=== PATIENT | male | born 1940 | race Caucasian/White ===

== ENCOUNTER 2017-05-06 02:17 | Observation (INO) | payer MEDICARE, BC ==
--- NOTE | 2017-05-06 02:37 | ER Document Report ---
ED Respiratory Problem - General Chief Complaint: Respiratory Distress Stated Complaint: DIFFICULTY BREATHING Time Seen by Provider: 05/06/17 02:27 Notes: Patient is a 77-year-old male that comes emergency department for chief complaint of difficulty breathing, symptoms have been worsening throughout the day, he has had a nonproductive cough for several days. He denies knowledge of fever. He states he had a tightness in his chest when his breathing got worse but denies pain. He denies vomiting, abdominal pain, lower extremity swelling, recent travel, recent surgery. He has a history of AICD, CAD, pacemaker/ defibrillator placement, hypertension, DM II, and takes Coumadin. He is not exactly sure why he takes Coumadin. Grandson at bedside. TRAVEL OUTSIDE OF THE [place] IN LAST 30 DAYS: No - Related Data Allergies/Adverse Reactions: Penicillins Allergy (Verified 05/06/17 02:18) Past Medical History - General Information source: Patient - Social History Smoking Status: Never Smoker Frequency of alcohol use: None Drug Abuse: None Lives with: Family Family History: Reviewed & Not Pertinent Patient has suicidal ideation: No Patient has homicidal ideation: No - Past Medical History Cardiac Medical History: Reports: Hx Atrial Fibrillation, Hx Congestive Heart Failure, Hx Coronary Artery Disease, Hx Heart Attack, Hx Hypercholesterolemia, Hx Hypertension Pulmonary Medical History: Reports: Hx Asthma Denies: Hx Tuberculosis Renal/ Medical History: Denies: Hx Peritoneal Dialysis Past Surgical History: Reports: Hx Coronary Stent - x5, Hx Internal Defibrillator, Hx Pacemaker - Immunizations Hx Diphtheria, Pertussis, Tetanus Vaccination: No Review of Systems - Review of Systems Constitutional: No symptoms reported EENT: No symptoms reported Cardiovascular: See HPI Respiratory: See HPI Gastrointestinal: No symptoms reported Genitourinary: No symptoms reported Male Genitourinary: No symptoms reported Musculoskeletal: No symptoms reported Skin: No symptoms reported Hematologic/Lymphatic: No symptoms reported Neurological/Psychological: No symptoms reported Physical Exam - Vital signs Vitals: BP Pulse Ox 186/108 H 100 05/06/17 02:35 05/06/17 02:35 Interpretation: Normal - General General appearance: Alert, Anxious In distress: Mild - Patient appears to be very uncomfortable - HEENT Head: Normocephalic, Atraumatic Eyes: Normal Pupils: PERRL - Respiratory Respiratory status: Respiratory distress, Labored, Tachypnea Breath sounds: Decreased air movement, Rales - Cardiovascular Rhythm: Regular. No: Tachycardia Heart sounds: Normal auscultation, S1 appreciated, S2 appreciated Murmur: No - Abdominal Inspection: Normal Distension: No distension Bowel sounds: Normal Tenderness: Nontender. No: Tender, Guarding Organomegaly: No organomegaly - Back Back: Normal, Nontender - Extremities General upper extremity: Normal inspection, Nontender, Normal color, Normal ROM , Normal temperature General lower extremity: Normal inspection, Nontender, Edema - Minimal bilateral edema, no pitting, Normal color, Normal ROM, Normal temperature, Normal weight bearing. No: Olivia's sign - Neurological Neuro grossly intact: Yes Cognition: Normal Orientation: AAOx4 [place] Coma Scale Eye Opening: Spontaneous [place] Coma Scale Verbal: Oriented [place] Coma Scale Motor: Obeys Commands [place] Coma Scale Total: 15 Speech: Normal Motor strength normal: LUE, RUE, LLE, RLE Sensory: Normal - Psychological Associated symptoms: Normal affect, Normal mood - Skin Skin Temperature: Warm Skin Moisture: Dry Skin Color: Normal Course - Re-evaluation Re-evalutation: Patient initially with tachypnea and appears to be in mild respiratory distress , however he was lying flat on the bed, I raised up the bed, placed him on oxygen, he was given nitroglycerin paste, he began to significantly improved. He does have rails on examination of his lungs especially on the left side. He is not hypoxic. He has missed his Lasix for several days in a row. He states this was because of issues with the pharmacy. He is compliant with his medications otherwise. He does not have significant lower extremity edema and does not have pitting. No fever, no tachycardia. CBC, chemistry generally unremarkable, chest x-ray does not show overt failure or pneumonia. Cardiac enzymes negative. BNP is greater than 3000 but this is nonspecific and was not previously tested. Patient has an ejection fraction of 35% per previous echo. Patient given a dose of Lasix. On reexamination patient continues to be well- appearing, however he cannot walk without getting short of breath and cannot lie flat. However when he is sitting up and on oxygen he has no symptoms. Patient is slightly subtherapeutic with his INR. His lung examination and HPr are most consistent with difficulty secondary to congestive heart failure exacerbation. Will discuss for admission. Discussed with Dr. Burroughs. Discussed with Dr. Mckinney, patient will be admitted to telemetry full admission. Patient states agreement with this plan. - Vital Signs Vital signs: Temp Pulse Resp BP Pulse Ox 22 H 173/105 H 99 05/06/17 06:31 05/06/17 06:31 05/06/17 06:31 - Laboratory Result Diagrams: 05/06/17 02:35 05/06/17 02:35 Laboratory results interpreted by me: 05/06/17 05/06/17 05/06/17 02:35 02:35 02:35 RBC 4.07 L Hgb 13.0 L RDW 14.2 H PT 19.4 H Total Bilirubin 2.1 H Direct Bilirubin 0.6 H NT-Pro-B Natriuret Pep Urine Protein 05/06/17 05/06/17 02:35 03:30 RBC Hgb RDW PT Total Bilirubin Direct Bilirubin NT-Pro-B Natriuret Pep 3170 H Urine Protein 30 H Discharge - Discharge Clinical Impression: Shortness of breath CHF exacerbation Qualifiers: Congestive heart failure type: unspecified congestive heart failure type Qualified Code(s): I50.9 - Heart failure, unspecified Condition: Stable Disposition: ADMITTED INPATIENT Admitting Provider: Hospitalist Unit Admitted: Telemetry
[2017-05-06 02:49] LABS: VENOUS BLOOD BASE EXCESS -2.3 mmol/L; VENOUS BLOOD HCO3 22.3 mmol/L (20-32); VENOUS BLOOD PCO2 37.9 mmHg (35-63); VENOUS BLOOD PH 7.39 (7.30-7.42)
[2017-05-06 02:51] LABS: ABSOLUTE BASOPHILS # (AUTO) 0.1 10^3/uL (0.0-0.2); ABSOLUTE EOSINOPHILS # (AUTO) 0.1 10^3/uL (0.0-0.6); ABSOLUTE LYMPHOCYTES (AUTO) 1.3 10^3/uL (0.5-4.7); ABSOLUTE MONOCYTES (AUTO) 0.6 10^3/uL (0.1-1.4); ABSOLUTE NEUT (AUTO) 3.5 10^3/uL (1.7-8.2); EOSINOPHILS % (AUTO) 2.2 % (0-6); HEMATOCRIT 38.7 % (37.9-51.0); HGB HCT DIFFERENCE 0.3; LYMPHOCYTES % (AUTO) 23.9 % (13-45); MEAN CORPUSCULAR HEMOGLOBIN 31.9 pg (27.0-33.4); MEAN CORPUSCULAR HGB CONC 33.6 g/dL (32.0-36.0); MEAN CORPUSCULAR VOLUME 95 fl (80-97); MONOCYTES % (AUTO) 10.2 % (3-13); RED BLOOD COUNT 4.07 10^6/uL (4.35-5.55); RED CELL DISTRIBUTION WIDTH 14.2 % (11.5-14.0); SEGMENTED NEUTROPHILS % (AUTO) 62.7 % (42-78); WHITE BLOOD COUNT 5.6 10^3/uL (4.0-10.5)
[2017-05-06] MEDS ORDERED: FUROSEMIDE INJ/PF 40 MG/4 ML SDV IV ONE ×2 (02:52→10:00)
[2017-05-06] MEDS ORDERED: NITROGLYCERIN 2% OINTMENT 1 GM PACKET TP ONE (02:57)
[2017-05-06 03:03] LABS: ALANINE AMINOTRANSFERASE 30 U/L (21-72); ALBUMIN 4.4 g/dL (3.5-5.0); ALKALINE PHOSPHATASE 55 U/L (38-126); ANION GAP 13 (5-19); ASPARTATE AMINO TRANSFERASE 25 U/L (17-59); BILIRUBIN,DIRECT 0.6 mg/dL (0.0-0.4); BILIRUBIN,TOTAL 2.1 mg/dL (0.2-1.3); BLOOD UREA NITROGEN 18 mg/dL (7-20); CALCIUM 9.7 mg/dL (8.4-10.2); CARBON DIOXIDE 24 mmol/L (22-30); CHLORIDE 106 mmol/L (98-107); CREATINE KINASE 84 U/L (55-170); CREATININE RESULT 0.91 mg/dL (0.52-1.25); GLUCOSE 99 mg/dL (75-110); POTASSIUM 4.5 mmol/L (3.6-5.0); SODIUM 143.4 mmol/L (137-145); TOTAL PROTEIN 7.4 g/dL (6.3-8.2)
[2017-05-06 03:15] LABS: CREATINE KINASE MB 1.94 ng/mL (<4.55); TROPONIN I < 0.012 ng/mL
--- NOTE | 2017-05-06 03:15 | RADIOLOGY REPORT (SQ) ---
EXAM DESCRIPTION: CHEST SINGLE VIEW COMPLETED DATE/TIME: 05/06/2017 3:02 am REASON FOR STUDY: shortness of breath, dec sounds and rales on Left COMPARISON: 04/19/2014. EXAM PARAMETERS: NUMBER OF VIEWS: One view. TECHNIQUE: Single frontal radiographic view of the chest acquired. RADIATION DOSE: NA LIMITATIONS: None. FINDINGS: LUNGS AND PLEURA: Moderate interstitial markings. MEDIASTINUM AND HILAR STRUCTURES: No masses. Contour normal. HEART AND VASCULAR STRUCTURES: Moderate enlargement of the cardiac silhouette. Atherosclerosis. BONES: No acute findings. HARDWARE: Left cardiac stimulation device and leads. OTHER: No other significant finding. IMPRESSION: No acute cardiopulmonary findings. Moderate chronic interstitial lung disease and moder ate cardiac enlargement without significant interval change compared with prior exam from March 2014 . TECHNICAL DOCUMENTATION: JOB ID: [id number]
[2017-05-06 03:37] LABS: PROTHROMBIN TIME 19.4 SEC (11.4-15.4)
[2017-05-06 03:51] LABS: APPEARANCE,URINE CLEAR; BILIRUBIN,URINE NEGATIVE (NEGATIVE); GLUCOSE, URINE NEGATIVE (NEGATIVE); KETONES,URINE NEGATIVE (NEGATIVE); LEUKOCYTE ESTERASE,URINE NEGATIVE (NEGATIVE); NITRITE,URINE NEGATIVE (NEGATIVE); PROTEIN,URINE 30 mg/dL (NEGATIVE); URINE SPECIFIC GRAVITY 1.008; UROBILINOGEN,URINE NEGATIVE mg/dL (<2.0)
[2017-05-06] MEDS ORDERED: DEXTROSE 40% GEL 15 GM TUBE PO PRN ×2 (06:19)
[2017-05-06] MEDS ORDERED: MAGNESIUM HYDROXIDE SUSP 30 ML UDCUP PO PRN (06:19)
[2017-05-06] MEDS ORDERED: DEXTROSE 50%-WATER 25 GM/50 ML DISP.SYRIN IV PRN ×2 (06:19)
[2017-05-06] MEDS ORDERED: GLUCAGON,HUMAN RECOMB 1 MG INJ IM PRN (06:19)
[2017-05-06] MEDS ORDERED: ACETAMINOPHEN 325 MG TABLET PO PRN (06:29)
[2017-05-06] MEDS ORDERED: PROMETHAZINE HCL 25 MG TABLET PO PRN (06:30)
[2017-05-06 06:31] LABS: ADD ON TESTING BLD IN LAB ACKNOWLEDGE
--- NOTE | 2017-05-06 07:02 | EKG REPORT ---
SEVERITY:- ABNORMAL ECG - VENTRICULAR-PACED RHYTHM : Confirmed by: Jeff Linares 06-May-2017 07:01:49
--- NOTE | 2017-05-06 07:22 | PDOC H&P ---
History of Present Illness Admission Date/PCP: 05/06/17 04:[address] Hsu, [facility] Patient complains of: Difficulty breathing History of Present Illness: IGLESIA PETE is a 77 year old male with known underlying systolic congestive heart failure, status post pacemaker defibrillator implant, atrial fibrillation, on Coumadin for same, and status post coronary stent implant 5 presents to the emergency room for evaluation of a several day history of combination dry cough and slowly progressive difficulty breathing, in particular with much of any exertion. Shortness of breath was particularly noticeable over the 24 hours or so prior to presentation. Did experience brief tightness in his chest when his breathing was at its worst , but this resolved once his breathing improved. No nausea vomiting, fever chills, diarrhea or dysuria. He has received an inch of Nitropaste and 40 mg of IV Lasix since coming to the emergency room, and now is breathing much more comfortably. Has had excellent urine output. Turns out that when he turned in his prescription for Lasix to his pharmacy , there were no refills. By the time all that was straightened out, so to speak, he had missed 2 days of his Lasix. Has also been somewhat noncompliant with other medications recently, including his Coumadin. There may have been other recent medication changes. Patient himself is a rather rambling historian, who frequently deviates from the subject being discussed. both current and old records mention asthma and COPD, but patient denies both. Patient has been discussed with emergency room nurse practitioner who evaluated the patient. Hospitalized on our service the through 31 March of last year with final diagnoses including dizziness, and syncope, along with acute allergic rhinitis with serous middle ear effusion. History and physical and discharge summary have been reviewed. Dictation via voice recognition software. Laboratory results are listed in [employer] and are reviewed. X-ray summary results are listed below, with full report(s) reviewed. . EKG reviewed and compared to a prior tracing from March 31 of last year. Social history/personal habits: . Lives alone, but has close family follow-up. Retired. No tobacco use for 20 years. No alcohol or illicit drug use. Allergies/adverse reactions are listed in [employer] and are reviewed. Uncertain if he can tolerate cephalosporins. Home medications initially autopopulated into [employer] may not accurately reflect patient's true medications, dosages, and/or frequencies. electro mechanical technologist to reconcile medications. Unfortunately, patient not certain of all medications/dosages/frequencies. REVIEW OF SYSTEMS: Constitutional: No fever or chills. Eyes: No vision complaints. ENT: No swallowing problems or complaints. Partial hearing loss. Pulmonary: See history and present illness. Cardiovascular: See history and present illness. Gastrointestinal: No current complaints, including nausea or vomiting. Skin: No current complaints, including rashes. Hematologic: Easy bruising. Neurologic: No current complaints, including numbness or tingling. Musculoskeletal: Joint pain from arthritis. Psychiatric: Denies anxiety or depression. Endocrine: No current complaints, including polyuria. Genitourinary: No current complaints, including dysuria. PHYSICAL EXAMINATION: 5 feet 11 inches tall. 100.7 kg. BMI 31 kg/m. Blood pressure 180/97. Pulse 73 and regular. 98% saturation on 2 L oxygen per nasal cannula. Respirations are 13 and unlabored. Temperature not recorded on chart; skin feels normothermic. Somewhat obese, also somewhat slightly disheveled, chronically ill-appearing male who appears a bit older than his stated age. Pleasant awake alert and cooperative. Mildly anxious, without agitation. Skin is warm and dry. No grossly obvious evidence of rash in areas of skin examined. No subcutaneous nodules palpated. ENT: Hearing grossly normal to normal conversation. Tongue midline on protrusion pink and slightly tacky. Eyes: No scleral icterus. Pupils equal and reactive to light at 4 mm. [place] conjunctivae. Neck is supple and nontender to gentle active range of motion and palpation. Midline trachea. No palpable thyroid nodule mass enlargement or tenderness. Lymphatic: No palpable cervical or clavicular nodes. Neck and lymphatic exams limited by patient body habitus. Psychiatric: Fair to reasonable insight into acute and chronic medical issues. Oriented to time location and why here. See history and present illness. Lungs: Auscultation reveals clear and equal breath sounds bilaterally. No use of accessory respiratory muscles. Cardiovascular: Heart regular rate and rhythm, without gallop murmur or rub. No carotid or abdominal aortic bruits. Mild bilateral symmetric very slightly pitting lower calf, ankle and pedal edema. Palpable dorsalis pedis pulses. Abdomen:soft slightly distended nontender with positive bowel sounds. Unable to adequately evaluate abdomen for masses or organomegaly due to distention. Extremities: Feet are warm and dry. No calf tenderness to compression. Gentle manipulation of lower extremities fails to reveal any obvious evidence of injury or instability to knees hips or ankles. Neurologic: Moves upper extremities grossly normally. Patellar reflexes absent. Absent Babinski. Light touch is intact at feet. Dorsiflexion and plantarflexion of feet 5 / 5 and symmetric. Past Medical History Cardiac Medical History: Reports: Atrial Fibrillation, Congestive Heart Failure - Systolic, Coronary Artery Disease, Myocardial Infarction, Hyperlipidema, Hypertension Denies: DVT, Pulmonary Embolism Pulmonary Medical History: Reports: Sleep Apnea - Noncompliant with CPAP mask Denies: Asthma, Chronic Obstructive Pulmonary Disease (COPD), Tuberculosis EENT Medical History: Reports: Ears - Partial hearing loss Denies: Eyes, Throat Neurological Medical History: Denies: Hemorrhagic CVA, Ischemic CVA, Seizures Endocrine Medical History: Reports: Diabetes Mellitus Type 2 Denies: Diabetes Mellitus Type 1, Hyperthyroidism, Hypothyroidism Renal/ Medical History: Reports: Other - Rare urinary tract infection GI Medical History: Reports: Peptic Ulcer Disease, Other - Distant history of peptic ulcer disease Denies: Cirrhosis, Gastroesophageal Reflux Disease, Hepatitis Musculoskeltal Medical History: Reports: Arthritis - Rheumatoid Skin Medical History: Reports: None Psychiatric Medical History: Denies: Alcohol Dependency, Depression, General Anxiety Disorder, Substance Abuse, Tobacco Dependency Hematology: Reports: Other - Easy bruising Infectious Medical History: Denies: Hepatitis B, Hepatitis C Past Surgical History Past Surgical History: Reports: Coronary Stent - x5, Internal Defibrillator Social History Information Source: Patient, Emergency Med Personnel, [facility] Records Lives with: Alone - Close family follow-up Smoking Status: Former Smoker Frequency of Alcohol Use: None Hx Recreational Drug Use: No Drugs: None Hx Prescription Drug Abuse: No - Advance Directive Resuscitation Status: Full Code Surrogate healthcare decision maker:: Daughter Family History Family History: Reviewed & Not Pertinent Parental Family History Reviewed: Yes - Mother of MD; father at 95. Children Family History Reviewed: Yes - Healthy Sibling(s) Family History Reviewed.: Yes - 2 surviving sisters, healthy Medication/Allergy Home Medications: Aspirin [Aspirin EC] 81 mg PO DAILY 05/06/17 Glimepiride [Amaryl 4 mg Tablet] 4 mg PO DAILY 05/06/17 Hydrocodone/Acetaminophen [[place] 7.5-325 mg Tablet] 1 tab PO Q8 05/06/17 Isosorbide Mononitrate [Isosorbide Mononitrate ER] 30 mg PO DAILY 05/06/17 Losartan Potassium [Cozaar 50 mg Tablet] 50 mg PO DAILY 05/06/17 Magnesium Oxide [Mag-Ox 400 mg Tablet] 400 mg PO DAILY 05/06/17 Metformin HCl [Glucophage 500 mg Tablet] 1,000 mg PO DAILY 05/06/17 Metformin HCl [Glucophage 500 mg Tablet] 500 mg PO QHS 05/06/17 Metoprolol Succinate [Toprol Xl 50 mg Tab.sr] 50 mg PO Q12 05/06/17 Montelukast Sodium [Singulair 10 mg Tablet] 10 mg PO QHS 05/06/17 Pantoprazole Sodium [Protonix] 40 mg PO DAILY 05/06/17 Potassium Chloride [Klor-Con 10 Meq Tablet.sa] 10 meq PO DAILY 05/06/17 Terazosin HCl 1 mg PO QHS 05/06/17 Warfarin Sodium [Coumadin 4 mg Tablet] 4 mg PO DAILY 05/06/17 Furosemide [Lasix 40 mg Tablet] 40 mg PO DAILY #30 tablet 05/07/17 Allergies/Adverse Reactions: Penicillins Allergy (Verified 05/06/17 02:18) Physical Exam Vital Signs: Temp Pulse Resp BP Pulse Ox 13 180/97 H 99 05/06/17 05:31 05/06/17 05:31 05/06/17 05:31 Results Impressions: Chest X-Ray 05/06/17 02:34 IMPRESSION: No acute cardiopulmonary findings. Moderate chronic interstitial lung disease and moderate cardiac enlargement without significant interval change compared with prior exam from March 2014. Assessment & Plan - Diagnosis (1) Elevated LFTs Is this a current diagnosis for this admission?: Yes Plan: Likely secondary to underlying congestive heart failure. Follow-up chemistry. (2) HLD (hyperlipidemia) Qualifiers: Hyperlipidemia type: unspecified Qualified Code(s): E78.5 - Hyperlipidemia , unspecified Is this a current diagnosis for this admission?: Yes Plan: Resume home medications as appropriate once these have been determined and reviewed. (3) Acute on chronic systolic (congestive) heart failure Is this a current diagnosis for this admission?: Yes Plan: Suspect due in large part to his having missed 2 or 3 doses of Lasix. Excellent urine output to IV Lasix. Breathing much more comfortably now. I have strongly encouraged patient not to get out of bed without notifying staff , to avoid a fall with injury. Knee high SCDs for DVT prophylaxis; with patient on Coumadin, no need for Lovenox or heparin. Impression and plans were discussed with patient, who concurs. Time spent in evaluation and management of patient: 72 minutes. (4) Noncompliance Is this a current diagnosis for this admission?: Yes (5) Diabetes mellitus type 2 in obese Is this a current diagnosis for this admission?: Yes Plan: Diabetic cardiac diet. Accu-Cheks with appropriate sliding scale coverage. Resume home medications as appropriate once these have been determined and reviewed. (6) Anticoagulant long-term use Is this a current diagnosis for this admission?: Yes Plan: Resume home medications as appropriate once these have been determined and reviewed. (7) HTN (hypertension) Qualifiers: Hypertension type: essential hypertension Qualified Code(s): I10 - Essential (primary) hypertension Is this a current diagnosis for this admission?: Yes Plan: Resume home medications as appropriate once these have been determined and reviewed. (8) Afib Qualifiers: Atrial fibrillation type: unspecified Qualified Code(s): I48.91 - Unspecified atrial fibrillation Is this a current diagnosis for this admission?: Yes Plan: Resume home medications as appropriate once these have been determined and reviewed. (9) EKATERINA (obstructive sleep apnea) Is this a current diagnosis for this admission?: Yes Plan: CPAP nightly - Time Time Spent: Greater than 70 Minutes Anticipated discharge: Home Within: within 48 hours
[2017-05-06] MEDS ORDERED: LOSARTAN POTASSIUM 50 MG TABLET PO ONE (07:30)
[2017-05-06] MEDS ORDERED: METOPROLOL TARTRATE 50 MG TABLET PO ONE (09:00)
[2017-05-06] MEDS: DOCUSATE SODIUM 100 MG CAPSULE PO SCH (10:14)
[2017-05-06 10:33] LABS: APPEARANCE,URINE CLEAR; BILIRUBIN,URINE NEGATIVE (NEGATIVE); GLUCOSE, URINE NEGATIVE (NEGATIVE); KETONES,URINE NEGATIVE (NEGATIVE); LEUKOCYTE ESTERASE,URINE NEGATIVE (NEGATIVE); NITRITE,URINE NEGATIVE (NEGATIVE); PROTEIN,URINE NEGATIVE (NEGATIVE); URINE SPECIFIC GRAVITY 1.008; UROBILINOGEN,URINE NEGATIVE mg/dL (<2.0)
[2017-05-06] MEDS ORDERED: GLIMEPIRIDE 4 MG TABLET PO ONE (12:00)
[2017-05-06] MEDS: HYDROCODONE/ACETAMINOPHEN 7.5-325 MG TABLET PO SCH ×2 (13:36→21:43)
[2017-05-06] MEDS: METOPROLOL TARTRATE 50 MG TABLET PO SCH (21:43)
[2017-05-06] MEDS ORDERED: WARFARIN SODIUM 4 MG TABLET PO SCH (22:00)
[2017-05-07] MEDS ORDERED: ENALAPRILAT DIHYDRATE INJ/PF 1.25 MG/1 ML SDV IV ONE (00:50)
[2017-05-07] MEDS: HYDROCODONE/ACETAMINOPHEN 7.5-325 MG TABLET PO SCH (05:28)
[2017-05-07 07:42] LABS: PROTHROMBIN TIME 17.6 SEC (11.4-15.4)
[2017-05-07 07:46] LABS: ALANINE AMINOTRANSFERASE 26 U/L (21-72); ALBUMIN 3.9 g/dL (3.5-5.0); ALKALINE PHOSPHATASE 50 U/L (38-126); ANION GAP 10 (5-19); ASPARTATE AMINO TRANSFERASE 31 U/L (17-59); BILIRUBIN,DIRECT 0.6 mg/dL (0.0-0.4); BILIRUBIN,TOTAL 2.1 mg/dL (0.2-1.3); BLOOD UREA NITROGEN 20 mg/dL (7-20); CALCIUM 9.3 mg/dL (8.4-10.2); CARBON DIOXIDE 28 mmol/L (22-30); CHLORIDE 103 mmol/L (98-107); CREATININE RESULT 0.89 mg/dL (0.52-1.25); GLUCOSE 100 mg/dL (75-110); POTASSIUM 4.2 mmol/L (3.6-5.0); SODIUM 141.2 mmol/L (137-145); TOTAL PROTEIN 6.6 g/dL (6.3-8.2)
--- NOTE | 2017-05-07 08:42 | Physician Advisory Note ---
Physician Advisor ProgressNote .: Pursuant to the plan for Balwinder Diaz, I have reviewed the medical record for this patient. Physician Advisor Statement: Nice documentation of ac on chr syst CHF w/EF 35%. Please consider documentin. Principal Dx 1st (dx requiring pt to come into hospital should be dx #1 in all notes) 2. Status change possible - below Status: Appropriately brought in as Outpt Obs to start, for CHF exac that might respond quickly to tx. Indeed, pt has diuresed nicely overnight, w/net UOP at least 2468ml. If, however, pt is not yet back to baseline breathing status after 1MN of care, still needs ongoing hospital care & close monitoring x a 2nd MN, then please document this & consider changing to Inpatient status. Thanks! CK
[2017-05-07] MEDS ORDERED: LOSARTAN POTASSIUM 50 MG TABLET PO SCH (10:00)
[2017-05-07] MEDS ORDERED: GLIMEPIRIDE 4 MG TABLET PO SCH (10:00)
[2017-05-07] MEDS ORDERED: FUROSEMIDE 40 MG TABLET PO SCH (10:00)
[2017-05-07] MEDS: DOCUSATE SODIUM 100 MG CAPSULE PO SCH (10:27)
[2017-05-07] MEDS: METOPROLOL TARTRATE 50 MG TABLET PO SCH (10:27)
[2017-05-07 12:07] VITALS: BP 154/88
--- NOTE | 2017-05-07 16:11 | PDOC DISCHARGE SUMMARY ---
General - Admit/Disc Date/PCP Admission Date/Primary Care Provider: 05/06/17 04:27 Discharge Date: 05/07/17 - Discharge Diagnosis (1) Acute on chronic systolic (congestive) heart failure Is this a current diagnosis for this admission?: Yes Summary: Patient presented with acute congestive heart failure because he had forgotten to take his Lasix for the last several days. (2) Afib Is this a current diagnosis for this admission?: Yes (3) Diabetes mellitus type 2 in obese Is this a current diagnosis for this admission?: Yes (4) HLD (hyperlipidemia) Is this a current diagnosis for this admission?: Yes (5) HTN (hypertension) Is this a current diagnosis for this admission?: Yes (6) EKATERINA (obstructive sleep apnea) Is this a current diagnosis for this admission?: Yes - Additional Information Resuscitation Status: Full Code Discharge Diet: Cardiac, Diabetic Discharge Activity: Activity As Tolerated, Balance Activity w/Rest, Weigh Daily Home Medications: Aspirin [Aspirin EC] 81 mg PO DAILY 05/06/17 Glimepiride [Amaryl 4 mg Tablet] 4 mg PO DAILY 05/06/17 Hydrocodone/Acetaminophen [Davis 7.5-325 mg Tablet] 1 tab PO Q8 05/06/17 Isosorbide Mononitrate [Isosorbide Mononitrate ER] 30 mg PO DAILY 05/06/17 Losartan Potassium [Cozaar 50 mg Tablet] 50 mg PO DAILY 05/06/17 Magnesium Oxide [Mag-Ox 400 mg Tablet] 400 mg PO DAILY 05/06/17 Metformin HCl [Glucophage 500 mg Tablet] 1,000 mg PO DAILY 05/06/17 Metformin HCl [Glucophage 500 mg Tablet] 500 mg PO QHS 05/06/17 Metoprolol Succinate [Toprol Xl 50 mg Tab.sr] 50 mg PO Q12 05/06/17 Montelukast Sodium [Singulair 10 mg Tablet] 10 mg PO QHS 05/06/17 Pantoprazole Sodium [Protonix] 40 mg PO DAILY 05/06/17 Potassium Chloride [Klor-Con 10 Meq Tablet.sa] 10 meq PO DAILY 05/06/17 Terazosin HCl 1 mg PO QHS 05/06/17 Warfarin Sodium [Coumadin 4 mg Tablet] 4 mg PO DAILY 05/06/17 Furosemide [Lasix 40 mg Tablet] 40 mg PO DAILY #30 tablet 05/07/17 History of Present Illness History of Present Illness: IGLESIA PETE is a 77 year old male with a known history of coronary artery disease as well as systolic congestive heart failure who presented with shortness of breath, dry cough and progressive dyspnea. The patient had not taken his Lasix for the last 2 days as his prescription for Lasix ran out. The patient denied having any chest pain. He was found to be in congestive heart failure and was admitted for diuresis. Hospital Course Hospital Course: 77-year-old gentleman with a history of systolic congestive heart failure who presented with acute on chronic systolic congestive heart failure. The patient had his prescription of Lasix run out and he had not taken it for 2 days. Patient was given IV Lasix and had quick improvement in his respiratory status. On the day of discharge he returned to his baseline respiratory status. He was given a prescription of Lasix to take. Patient also had a history of coronary artery disease as well as diabetes both of which were stable. Patient no evidence for any type of acute cardiac event as the cause for his symptoms. Physical Exam Vital Signs: Temp Pulse Resp BP Pulse Ox 98.1 F 70 18 154/88 H 97 05/07/17 11:49 05/07/17 11:49 05/07/17 11:49 05/07/17 11:49 05/07/17 11:49 Intake & Output 05/06/17 05/07/17 05/08/17 06:59 06:59 06:59 Intake Total 1782 Output Total 4250 Balance -2468 Weight 97.267 kg General appearance: PRESENT: no acute distress Eye exam: PRESENT: conjunctiva pink. ABSENT: scleral icterus Mouth exam: PRESENT: moist, tongue midline Neck exam: ABSENT: JVD Respiratory exam: PRESENT: clear to auscultation naya. ABSENT: rales, rhonchi, wheezes Cardiovascular exam: PRESENT: RRR. ABSENT: diastolic murmur, rubs, systolic murmur GI/Abdominal exam: PRESENT: normal bowel sounds, soft. ABSENT: distended, guarding, mass, organolmegaly, rebound, tenderness Extremities exam: ABSENT: calf tenderness, clubbing, pedal edema Neurological exam: PRESENT: alert, awake, oriented to person, oriented to place , oriented to time, oriented to situation, CN II-XII grossly intact. ABSENT: motor sensory deficit Psychiatric exam: PRESENT: appropriate affect Skin exam: PRESENT: dry, intact, warm. ABSENT: cyanosis, rash Results Laboratory Results: 05/07/17 06:57 05/07/17 06:57 Sodium 141.2 Potassium 4.2 Chloride 103 Carbon Dioxide 28 Anion Gap 10 BUN 20 Creatinine 0.89 Est GFR ( Amer) > 60 Est GFR (Non-Af Amer) > 60 Glucose 100 Calcium 9.3 Total Bilirubin 2.1 H AST 31 ALT 26 Alkaline Phosphatase 50 Total Protein 6.6 Albumin 3.9 05/06/17 05/06/17 09:26 13:08 Troponin I < 0.012 < 0.012 Impressions: Chest X-Ray 05/06/17 02:34 IMPRESSION: No acute cardiopulmonary findings. Moderate chronic interstitial lung disease and moderate cardiac enlargement without significant interval change compared with prior exam from March 2014. Qualifiers PATEINT BEING DISCHARGED WITH ANY OF THE FOLLOWING DIAGNOSIS?: Heart Failure HF Pt being discharged on ACEI for LVEF less than 40%?: No Reason(s) for not prescribing ACEI:: Not indicated HF Pt being discharged on ARBS for LVEF less than 40%?: Yes HF Pt with Afib discharged with Warfarin?: Yes HF Pt discharged on evidence-based Beta Arias:: Yes Plan Discharge Plan: Patient will follow up with his primary care doctor in 1-2 weeks. He is discharged to home. Time Spent: Less than 30 Minutes
== END 2017-05-07 13:05 | disposition home or self-care (01) ==
LOC: ER 02:17 → EH 04:27 → INTOOBSV 04:27 → 4S 08:40
PROVIDERS: ADMIT Family Medicine; ATTEND Family Medicine
DX: I11.0 Hypertensive heart disease with heart failure (principal); I50.23 Acute on chronic systolic (congestive) heart failure; I48.2 Chronic atrial fibrillation; E78.5 Hyperlipidemia, unspecified; G47.33 Obstructive sleep apnea (adult) (pediatric); E11.9 Type 2 diabetes mellitus without complications; I25.10 Atherosclerotic heart disease of native coronary artery without angina pectoris; Z79.01 Long term (current) use of anticoagulants; Z95.810 Presence of automatic (implantable) cardiac defibrillator; Z91.19 Patient's noncompliance with other medical treatment and regimen
CPT/HCPCS: 93005; 99285; 36415 ×2; 87040; 82553; 82962 ×2; 82550; 83735; 85025; 85610 ×2; 80053 ×2; 81001; 84484; 82803; 83605; 83880; 71010; 93010; G0378 ×3; A9270 ×14; J1940; J3490 ×3

== ENCOUNTER → 2017-06-17 | Outpatient (CLI) | payer MEDICARE, BC ==
--- NOTE | 2017-06-17 12:41 | RADIOLOGY REPORT (SQ) ---
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 Additio nal selected color Doppler and spectral images recorded. LIMITATIONS: None. FINDINGS: PANCREAS: No masses. Visualized pancreatic duct normal caliber. LIVER: 17.7 cm. Normal echotexture. LIVER VASCULATURE: Normal directional flow of the main portal vein and hepatic veins. GALLBLADDER: There are some small stones. There is some echogenic sludge. There is no wall thickeni ng. There is no pericholecystic fluid. ULTRASOUND-DETECTED JOHANSEN'S SIGN: Negative. INTRAHEPATIC DUCTS AND COMMON DUCT: CBD and intrahepatic ducts normal caliber. No filling defects. INFERIOR VENA CAVA: Normal flow. AORTA: No aneurysm. RIGHT KIDNEY: Normal size, 11.3 cm. Normal echogenicity. No solid masses. There is a 3 cm cyst on the upper pole. No hydronephrosis. No calcifications. PERITONEAL AND RIGHT PLEURAL SPACE: No ascites or effusions. OTHER: No other significant findings. IMPRESSION: Cholelithiasis with no evidence of cholecystitis. TECHNICAL DOCUMENTATION: JOB ID: [id number]- All Rights Reserved
== END ==
LOC: RAD 08:36
PROVIDERS: ATTEND Registered Nurse
DX: R10.9 Unspecified abdominal pain (principal); E80.7 Disorder of bilirubin metabolism, unspecified; K80.20 Calculus of gallbladder without cholecystitis without obstruction
CPT/HCPCS: 76705

== ENCOUNTER → 2019-08-21 | Outpatient (CLI) | payer MEDICARE, BC ==
--- NOTE | 2019-08-21 15:42 | RADIOLOGY REPORT (SQ) ---
EXAM DESCRIPTION: U/S RETROPERITON (RENAL/AORTA) COMPLETED DATE/TIME: 08/21/2019 3:24 pm REASON FOR STUDY: R94.4 ABNORMAL RESULTS OF KIDNEY FUNCTION STUDIES R94.4 ABNORMAL RESULTS OF KIDNE Y FUNCTION STUDIES COMPARISON: None. TECHNIQUE: Dynamic and static grayscale images acquired of the kidneys and bladder and recorded on P ACS. Additional selected color Doppler and spectral images recorded. LIMITATIONS: None. FINDINGS: RIGHT KIDNEY: Normal size, 11.6 cm. Slightly hypoechoic. No solid or suspicious masses. N o hydronephrosis. No calcifications. LEFT KIDNEY: Normal size, 11.6 cm. Slightly hypoechoic. No solid or suspicious masses. No hydroneph rosis. No calcifications. BLADDER: Bilateral ureteral jets are seen. No masses. OTHER FINDINGS: No other significant finding. IMPRESSION: The kidneys are slightly hypoechoic but the study is otherwise normal. TECHNICAL DOCUMENTATION: JOB ID: [id number] [employer]- All Rights Reserved Reading location - IP/workstation name: [email or web address]
== END ==
LOC: RAD 14:22
PROVIDERS: ATTEND Registered Nurse
DX: R94.4 Abnormal results of kidney function studies (principal)
CPT/HCPCS: 76770

== ENCOUNTER 2020-01-16 11:46 | Emergency (ER) | payer MEDICARE, BC ==
--- NOTE | 2020-01-16 12:09 | ER Document Report ---
ED General - General Chief Complaint: Dizziness Stated Complaint: DIZZINESS Time Seen by Provider: 01/16/20 11:51 Primary Care Provider: CYNTHIA KOROMA HOT STAMP OPERATOR [Primary Care Provider] - Follow up as needed Information source: Patient Notes: Patient is a 79-year-old male presenting to the emergency department chief complaint of dizziness/vertigo. Patient states he has a prior history of same. Patient denies travel history trauma history sick contacts no change in medications. Patient denies nausea vomiting diarrhea fevers chills cough or cold other than today once the dizziness started patient states that he became nauseous and did have several episodes of vomiting. Patient states no one else at home is ill. TRAVEL OUTSIDE OF THE [place] IN LAST 30 DAYS: No - HPI Onset: This morning Onset/Duration: Intermittent Quality of pain: No pain Severity: Moderate Associated symptoms: Nausea, Vomiting Exacerbated by: Movement Relieved by: Denies Similar symptoms previously: Yes Recently seen / treated by doctor: Yes - pain mgt injection - Related Data Allergies/Adverse Reactions: Penicillins Allergy (Verified 05/06/17 02:18) Past Medical History - General Information source: Patient, [facility] Records - Social History Smoking Status: Former Smoker Chew tobacco use (# tins/day): No Frequency of alcohol use: None Drug Abuse: None Lives with: Spouse/Significant other Family History: Reviewed & Not Pertinent Patient has suicidal ideation: No Patient has homicidal ideation: No - Past Medical History Cardiac Medical History: Reports: Hx Atrial Fibrillation, Hx Congestive Heart Failure - Systolic, Hx Coronary Artery Disease, Hx Heart Attack, Hx Hypercholesterolemia, Hx Hypertension Denies: Hx DVT, Hx Pulmonary Embolism Pulmonary Medical History: Reports: Hx Sleep Apnea - Noncompliant with CPAP mask Denies: Hx Asthma, Hx COPD, Hx Tuberculosis Neurological Medical History: Denies: Hx Seizures Endocrine Medical History: Reports: Hx Diabetes Mellitus Type 2. Denies: Hx Diabetes Mellitus Type 1, Hx Hyperthyroidism, Hx Hypothyroidism Renal/ Medical History: Denies: Hx Peritoneal Dialysis GI Medical History: Denies: Hx Cirrhosis, Hx Gastroesophageal Reflux Disease, Hx Hepatitis Musculoskeletal Medical History: Reports Hx Arthritis - Rheumatoid Psychiatric Medical History: Denies: Hx Depression Infectious Medical History: Denies: Hx Hepatitis Past Surgical History: Reports: Hx Cardiac Surgery - stent x 5, Hx Coronary S tent - x5, Hx Internal Defibrillator, Hx Pacemaker - Immunizations Hx Diphtheria, Pertussis, Tetanus Vaccination: No Review of Systems - Review of Systems Notes: REVIEW OF SYSTEMS: CONSTITUTIONAL : Denies fever, chills, or sweats. Denies recent illness. EENT: Denies eye, ear, throat, or mouth pain or symptoms. Denies nasal or sinus congestion. CARDIOVASCULAR: Denies chest pain. RESPIRATORY: Denies cough, cold, or chest congestion. Denies shortness of breath, difficulty breathing, or wheezing. GASTROINTESTINAL: Per HPI GENITOURINARY: Denies difficulty urinating, painful urination, burning, frequency, or blood in urine. MUSCULOSKELETAL: Denies neck or back pain or joint pain or swelling. SKIN: Denies rash or skin lesions. HEMATOLOGIC : Denies easy bruising or bleeding. NEUROLOGICAL: Per HPI PSYCHIATRIC: Denies suicidal or homicidal ideations 10 Systems are negative unless otherwise specified above Physical Exam - Vital signs Vitals: Temp 97 F L 01/16/20 11:52 - Notes Notes: PHYSICAL EXAMINATION: GENERAL: Well-appearing, well-nourished and in no acute distress. HEAD: Atraumatic, normocephalic. EYES: Pupils equal round and reactive to light, extraocular movements intact, sclera anicteric, conjunctiva are normal. ENT: nares patent, oropharynx clear without exudates. Moist mucous membranes. NECK: Normal range of motion, supple without lymphadenopathy, no appreciable JVD LUNGS: Lungs clear to auscultation bilaterally and equal. No wheezes rales or rhonchi. HEART: Regular rate and rhythm without murmurs ABDOMEN: Soft, nontender, normal bowel sounds. No guarding, no rebound. No masses appreciated. EXTREMITIES: Active full range of motion, no pitting or edema. No cyanosis. 2+ pulses x4 NEUROLOGICAL: At time of presentation patient is alert and oriented x3 Demetrio Coma Scale of 15 patient answers all questions appropriately follows commands appropriately and at this time the dizziness/vertigo seems to have abated. Patient has no focal neurologic deficits. SKIN: Warm, Dry, and intact. Normal turgor, no rashes or lesions noted. Course - Re-evaluation Re-evalutation: 01/16/20 13:39 Patient has remained stable while in emergency department has not had any episodes of dizziness while present. I did discuss laboratory EKG and radiologic results with the patient patient has been sleeping most of the time he states that he does do this on a regular basis because he is bored. Patient also is supposed to be wearing a CPAP at night but patient adamantly refuses. Patient does not have supplemental oxygen at home. Patient is agreeable with discharge home will receive first dose of antibiotic in the emergency department for treatment of his urinary tract infection and he was recommended to follow-up in the next several days with his family physician. - Vital Signs Vital signs: Temp Pulse Resp BP Pulse Ox 97 F L 73 131/81 H 01/16/20 11:52 01/16/20 13:32 01/16/20 13:32 - Laboratory Result Diagrams: 01/16/20 12:05 01/16/20 12:05 Laboratory results interpreted by me: 01/16/20 01/16/20 01/16/20 12:05 12:05 12:05 RBC 4.01 L Hgb 13.0 L Hct 36.3 L Plt Count 141 L PT 31.1 H BUN 29 H Creatinine 2.18 H Est GFR ( Amer) 36 L Est GFR (MDRD) Non-Af 29 L Glucose 200 H Total Bilirubin 2.0 H Ur Leukocyte Esterase 01/16/20 12:26 RBC Hgb Hct Plt Count PT BUN Creatinine Est GFR ( Amer) Est GFR (MDRD) Non-Af Glucose Total Bilirubin Ur Leukocyte Esterase TRACE H - Diagnostic Test Radiology reviewed: Reports reviewed - EKG Interpretation by Me Rate: Normal Rhythm: NSR Additional EKG results interpreted by me: 01/16/20 12:24 EKG and is interpreted by me shows a ventricularly paced rhythm at 76 bpm there is intermittent ectopy and for the most part similar morphology compared to prior EKG of 05/06/2017. Discharge - Discharge Clinical Impression: Dizziness, Noncompliance, EKATERINA (obstructive sleep apnea), Diabetes mellitus type 2 in obese, Renal insufficiency HTN (hypertension) Qualifiers: Hypertension type: essential hypertension Qualified Code(s): I10 - Essential (primary) hypertension Urinary tract infection Qualifiers: Urinary tract infection type: site unspecified Hematuria presence: without h ematuria Qualified Code(s): N39.0 - Urinary tract infection, site not specified Condition: Stable Disposition: HOME, SELF-CARE Instructions: Nitrofurantoin ([facility]), Urinary Tract Infection ([facility]) Additional Instructions: Recommend follow-up with your primary care provider in the next week for reevaluation of your UTI and elevated kidney functions. Prescriptions: Nitrofurantoin Monohyd/M-Cryst [Macrobid 100 mg Capsule] 100 mg PO BID #20 cap Referrals: CYNTHIA KOROMA, HOT STAMP OPERATOR [Primary Care Provider] - Follow up as needed
[2020-01-16 12:22] LABS: ABSOLUTE EOSINOPHILS # (AUTO) 0.2 10^3/uL (0.0-0.6); ABSOLUTE LYMPHOCYTES (AUTO) 0.8 10^3/uL (0.5-4.7); ABSOLUTE MONOCYTES (AUTO) 0.5 10^3/uL (0.1-1.4); ABSOLUTE NEUT (AUTO) 3.2 10^3/uL (1.7-8.2); EOSINOPHILS % (AUTO) 3.3 % (0-6); HEMATOCRIT 36.3 % (37.9-51.0); LYMPHOCYTES % (AUTO) 16.2 % (13-45); MEAN CORPUSCULAR HEMOGLOBIN 32.5 pg (27.0-33.4); MEAN CORPUSCULAR HGB CONC 35.9 g/dL (32.0-36.0); MEAN CORPUSCULAR VOLUME 91 fl (80-97); MONOCYTES % (AUTO) 10.2 % (3-13); PLATELET COUNT 141 10^3/uL (150-450); RED BLOOD COUNT 4.01 10^6/uL (4.35-5.55); SEGMENTED NEUTROPHILS % (AUTO) 69.3 % (42-78); TOTAL CELLS COUNTED % (AUTO) 100 %; WHITE BLOOD COUNT 4.7 10^3/uL (4.0-10.5)
[2020-01-16 12:32] LABS: INTERNATIONAL RATION (INR) 2.91; PROTHROMBIN TIME 31.1 SEC (11.4-15.4)
[2020-01-16 12:38] LABS: ALBUMIN 4.6 g/dL (3.5-5.0); ALKALINE PHOSPHATASE 61 U/L (38-126); ANION GAP 14 (5-19); ASPARTATE AMINO TRANSFERASE 30 U/L (17-59); BILIRUBIN,DIRECT 0.1 mg/dL (0.0-0.4); BLOOD UREA NITROGEN 29 mg/dL (7-20); CALCIUM 9.5 mg/dL (8.4-10.2); CARBON DIOXIDE 24 mmol/L (22-30); CHLORIDE 99 mmol/L (98-107); CREATINE KINASE 87 U/L (55-170); GLUCOSE 200 mg/dL (75-110); POTASSIUM 4.2 mmol/L (3.6-5.0); TOTAL PROTEIN 7.8 g/dL (6.3-8.2)
[2020-01-16 12:41] LABS: APPEARANCE,URINE SLIGHTLY-CLOUDY; BILIRUBIN,URINE NEGATIVE (NEGATIVE); COLOR,URINE YELLOW; GLUCOSE, URINE NEGATIVE (NEGATIVE); KETONES,URINE NEGATIVE (NEGATIVE); LEUKOCYTE ESTERASE,URINE TRACE (NEGATIVE); NITRITE,URINE NEGATIVE (NEGATIVE); PROTEIN,URINE NEGATIVE (NEGATIVE); URINE SPECIFIC GRAVITY 1.009; UROBILINOGEN,URINE NEGATIVE mg/dL (<2.0)
[2020-01-16 13:13] LABS: TROPONIN I < 0.012 ng/mL
--- NOTE | 2020-01-16 13:15 | RADIOLOGY REPORT (SQ) ---
EXAM DESCRIPTION: CT HEAD WITHOUT IMAGES COMPLETED DATE/TIME: 01/16/2020 12:58 pm REASON FOR STUDY: dizziness COMPARISON: 03/30/2016. TECHNIQUE: Axial images acquired through the brain without intravenous contrast. Images reviewed wi th bone, brain and subdural windows. Additional sagittal and coronal reconstructions were generated. Images stored on PACS. All CT scanners at this facility use dose modulation, iterative reconstruction, and/or weight based d osing when appropriate to reduce radiation dose to as low as reasonably achievable (ALARA). [facility]: Dose Right [facility]: CareDose [facility]: Dose Right [facility]: Teradose 4D [facility]: [employer] RADIATION DOSE: CT Rad equipment meets quality standard of care and radiation dose reduction techniq ues were employed. CTDIvol: 53.2 mGy. DLP: 1044 mGy-cm.mGy. LIMITATIONS: None. FINDINGS: VENTRICLES: Prominent. CEREBRUM: No masses. No hemorrhage. No midline shift. Areas of low density in the white matter mos t likely due to chronic micro-vascular ischemic change. No evidence for acute infarction. CEREBELLUM: No masses. No hemorrhage. No alteration of density. No evidence for acute infarction. EXTRAAXIAL SPACES: Age-related involutional change. No fluid collections. No masses. ORBITS AND GLOBE: No intra- or extraconal masses. Normal contour of globe without masses. CALVARIUM: No fracture. PARANASAL SINUSES: No fluid or mucosal thickening. SOFT TISSUES: No mass or hematoma. OTHER: No other significant finding. IMPRESSION: CHRONIC CHANGES OF ATROPHY AND MICROVASCULAR ISCHEMIA. NO ACUTE PROCESS. EVIDENCE OF ACUTE STROKE: NO. TECHNICAL DOCUMENTATION: JOB ID: [id number] Quality ID # [id number]: Final reports with documentation of one or more dose reduction techniques (e.g., Au tomated exposure control, adjustment of the mA and/or kV according to patient size, use of iterative reconstruction technique) 2010 [employer]- All Rights Reserved Reading location - IP/workstation name: [email or web address]
[2020-01-16] MEDS ORDERED: NITROFURANTOIN MONOHYD/M-CRYST 100 MG CAPSULE PO ONE (13:38)
[2020-01-16 13:40] VITALS: BP 119/74
--- NOTE | 2020-01-16 17:14 | EKG REPORT ---
SEVERITY:- ABNORMAL ECG - VENTRICULAR-PACED COMPLEXES NONSPECIFIC INTRAVENTRICULAR CONDUCTION DELAY NONSPECIFIC ST DEPRESSION : Confirmed by: Chantale Amato MD 16-Jan-2020 17:13:46
== END 2020-01-16 14:30 | disposition home or self-care (01) ==
LOC: ER 11:46
DX: R42 Dizziness and giddiness (principal); N39.0 Urinary tract infection, site not specified; N28.9 Disorder of kidney and ureter, unspecified; G47.33 Obstructive sleep apnea (adult) (pediatric); Z91.19 Patient's noncompliance with other medical treatment and regimen; E66.9 Obesity, unspecified; E11.9 Type 2 diabetes mellitus without complications; R11.2 Nausea with vomiting, unspecified; I11.0 Hypertensive heart disease with heart failure; I50.22 Chronic systolic (congestive) heart failure; I25.10 Atherosclerotic heart disease of native coronary artery without angina pectoris; Z87.891 Personal history of nicotine dependence; Z88.0 Allergy status to penicillin
CPT/HCPCS: 93005; 99284; 36415; 82553; 82962; 82550; 85025; 85610; 80053; 81001; 84484; 70450; 93010; A9270; J8499

== ENCOUNTER → 2020-09-20 | Outpatient (CLI) | payer MEDICARE, BC ==
--- NOTE | 2020-09-20 10:55 | RADIOLOGY REPORT (SQ) ---
EXAM DESCRIPTION: CT HEAD WITHOUT IMAGES COMPLETED DATE/TIME: 09/20/2020 10:34 am REASON FOR STUDY: R26.0 ATAXIC GAIT R26.0 ATAXIC GAIT COMPARISON: 01/16/2020. TECHNIQUE: Axial images acquired through the brain without intravenous contrast. Images reviewed wi th bone, brain and subdural windows. Additional sagittal and coronal reconstructions were generated. Images stored on PACS. All CT scanners at this facility use dose modulation, iterative reconstruction, and/or weight based d osing when appropriate to reduce radiation dose to as low as reasonably achievable (ALARA). [facility]: Dose Right [facility]: CareDose [facility]: Dose Right [facility]: Teradose 4D [facility]: [employer] RADIATION DOSE: CT Rad equipment meets quality standard of care and radiation dose reduction techniq ues were employed. CTDIvol: 49.0 mGy. DLP: 960 mGy-cm.mGy. LIMITATIONS: None. FINDINGS: VENTRICLES: Prominent. CEREBRUM: No masses. No hemorrhage. No midline shift. Areas of low density in the white matter mos t likely due to chronic micro-vascular ischemic change. No evidence for acute infarction. CEREBELLUM: No masses. No hemorrhage. No alteration of density. No evidence for acute infarction. EXTRAAXIAL SPACES: Age-related involutional change. No fluid collections. No masses. ORBITS AND GLOBE: No intra- or extraconal masses. Normal contour of globe without masses. CALVARIUM: No fracture. PARANASAL SINUSES: No fluid or mucosal thickening. SOFT TISSUES: No mass or hematoma. OTHER: No other significant finding. IMPRESSION: CHRONIC CHANGES OF ATROPHY AND MICROVASCULAR ISCHEMIA. NO ACUTE PROCESS. EVIDENCE OF ACUTE STROKE: NO. TECHNICAL DOCUMENTATION: JOB ID: [id number] Quality ID # [id number]: Final reports with documentation of one or more dose reduction techniques (e.g., Au tomated exposure control, adjustment of the mA and/or kV according to patient size, use of iterative reconstruction technique) 2010 [employer]- All Rights Reserved Reading location - IP/workstation name: [email or web address]
== END ==
LOC: RAD 10:17
PROVIDERS: ATTEND Registered Nurse
DX: R26.0 Ataxic gait (principal)
CPT/HCPCS: 70450